=== PATIENT | female | born 1990 | race Caucasian/White ===

== ENCOUNTER 2018-03-10 04:38 | Inpatient (IN) | payer OTHER, MEDICAID ==
[2018-03-10] MEDS ORDERED: IBUPROFEN 600 MG TAB PO (06:00)
[2018-03-10] MEDS ORDERED: OXYTOCIN 30 UNITS/LR 500 ML IV ×2 (06:00→19:30)
[2018-03-10] MEDS ORDERED: METHYLERGONOVINE 0.2 MG INJ IM (06:00)
[2018-03-10] MEDS ORDERED: CARBOPROST 250 MCG INJ IM (06:00)
[2018-03-10] MEDS ORDERED: MISOPROSTOL 200 MCG TAB PR (06:00)
[2018-03-10] MEDS ORDERED: LIDOCAINE 1% (MPF) 30 ML INJ INJ (06:00)
[2018-03-10 07:35] LABS: ADD MAN DIFF? NO
[2018-03-10] MEDS: LACTATED RINGER'S 1,000 ML IV ×3 (07:38→20:21)
[2018-03-10] MEDS: BUTORPHANOL 2 MG INJ IV ×3 (07:39→22:31)
[2018-03-10 07:42] LABS: ABNORMAL IP MESSAGE 1; BASOPHILS % 0.3 % (0.0-2.0); EOSINOPHILS # 0.1 10^3/ul (0.0-0.5); EOSINOPHILS % 0.7 % (0.0-7.0); HEMOGLOBIN 12.5 g/dl (12.0-16.0); LYMPHOCYTES # 1.5 10^3/ul (0.8-2.9); LYMPHOCYTES % 16.4 % (15.0-51.0); MEAN CORPUSCULAR HEMOGLOBIN 31.6 pg (29.0-33.0); MEAN CORPUSCULAR HGB CONC 34.7 g/dl (32.0-37.0); MEAN CORPUSCULAR VOLUME 90.9 fl (82.0-101.0); MONOCYTE # 0.7 10^3/ul (0.3-0.9); MONOCYTES % 7.9 % (0.0-11.0); NEUTROPHIL # 6.7 10^3/ul (1.6-7.5); NEUTROPHILS % 73.9 % (39.0-77.0); RED BLOOD COUNT 3.96 10^6/ul (4.20-5.40); RED CELL DISTRIBUTION WIDTH 13.3 % (11.5-14.5)
[2018-03-10 07:49] LABS: POSITIVE DIFF @See below
[2018-03-10 07:59] LABS: INR 0.89; PROTIME 12.1 Sec (11.9-14.9); PT RATIO 0.9
[2018-03-10 08:00] LABS: PARTIAL THROMBOPLASTIN TIME 27.6 Sec (23.0-35.0)
[2018-03-10 08:59] LABS: PLATELET COUNT 171 10^3/UL (140-415)
[2018-03-10 09:09] LABS: ANISOCYTOSIS 2+ (0-0); LYMPHOCYTES #M 1.9 10^3/ul (0.8-2.9); LYMPHOCYTES % (M) 22 % (15-51); METAMYELOCYTES %M 1 % (0-0); MONOCYTE #M 0.5 10^3/ul (0.3-0.9); MONOCYTES % (M) 6 % (0-11); PLATELET ESTIMATE NORMAL; PLATELET MORPHOLOGY COMMENT @See below; SEGMENTED NEUTROPHILS (M) % 71 % (39-77); SMUDGE%M 5 % (0-0)
[2018-03-10 20:02] LABS: RAPID PLASMA REAGIN NONREACTIVE (NR)
[2018-03-11] MEDS: AMPICILLIN 2 GM/NS (PMX) 100 ML IVPB (00:12)
[2018-03-11] MEDS: OXYTOCIN 30 UNITS/LR 500 ML IV ×2 (03:00→03:01)
[2018-03-11] MEDS ORDERED: AMPICILLIN 1 GM/NS (PMX) 50 ML IVPB (04:00)
[2018-03-11] MEDS: SENNA TAB PO ×2 (09:37→21:15)
[2018-03-11] MEDS: LANOLIN 7 GM TUBE TOP (09:37)
[2018-03-11] MEDS: BENZOCAINE 20% 56 ML SPRAY TOP (09:37)
[2018-03-11] MEDS: IBUPROFEN 600 MG TAB PO ×2 (11:40→18:00)
[2018-03-12] MEDS: IBUPROFEN 600 MG TAB PO ×4 (01:06→17:15)
[2018-03-12 09:29] LABS: ADD MAN DIFF? NO
[2018-03-12 09:41] LABS: BASOPHILS % 0.3 % (0.0-2.0); EOSINOPHILS # 0.2 10^3/ul (0.0-0.5); EOSINOPHILS % 1.3 % (0.0-7.0); HEMATOCRIT 30.9 % (37.0-47.0); HEMOGLOBIN 10.7 g/dl (12.0-16.0); LYMPHOCYTES # 2.3 10^3/ul (0.8-2.9); LYMPHOCYTES % 19.4 % (15.0-51.0); MEAN CORPUSCULAR HEMOGLOBIN 31.7 pg (29.0-33.0); MEAN CORPUSCULAR HGB CONC 34.6 g/dl (32.0-37.0); MEAN CORPUSCULAR VOLUME 91.4 fl (82.0-101.0); MEAN PLATELET VOLUME 11.7 fl (7.4-10.4); MONOCYTE # 0.9 10^3/ul (0.3-0.9); MONOCYTES % 7.4 % (0.0-11.0); NEUTROPHIL # 8.5 10^3/ul (1.6-7.5); PLATELET COUNT 136 10^3/UL (140-415); RED BLOOD COUNT 3.38 10^6/ul (4.20-5.40)
[2018-03-12] MEDS: SENNA TAB PO ×2 (12:45→21:55)
[2018-03-13] MEDS: IBUPROFEN 600 MG TAB PO ×3 (00:53→12:00)
[2018-03-13] MEDS: SENNA TAB PO (09:00)
== END 2018-03-13 18:35 | disposition home or self-care (01) | DRG 807 ==
LOC: OBT 04:38 → L-D 04:40 → PP1 03-11 04:37 → OBT 06:00 → L-D 06:00
PROVIDERS: Obstetrics & Gynecology
PROC: 10E0XZZ Delivery of Products of Conception, External Approach (ICD-10-PCS; principal; 2018-03-11)
PROC: 0HQ9XZZ Repair Perineum Skin, External Approach (ICD-10-PCS; 2018-03-11)
PROC: 3E033VJ Introduction of Other Hormone into Peripheral Vein, Percutaneous Approach (ICD-10-PCS; 2018-03-11)
DX: O70.0 First degree perineal laceration during delivery (principal); Z37.0 Single live birth; Z3A.38 38 weeks gestation of pregnancy
CPT/HCPCS: 36415; 76815; 85025; 85610; 85730; 86592; 86850; 86900; 86901; 90686; 96360